=== PATIENT | female | born 1935 | race Asian ===

== ENCOUNTER 2019-07-12 14:00 | Inpatient (IN) | payer MEDICARE ==
[~2019-07-12] VITALS: Ht 147.3 cm; Wt 40.9 kg
[2019-07-12] MEDS ORDERED: UNK HTN MED PO (14:23)
[2019-07-12] MEDS ORDERED: MethylPREDNISolone SOD SUCC 125 MG/2 ML VIAL IVP ONE (14:30)
[2019-07-12] MEDS ORDERED: ALBUTEROL SULFATE 5 MG/ML 20 ML NEB SOLN [BULK] NEB ONE (14:30)
[2019-07-12] MEDS ORDERED: IPRATROPIUM BROMIDE 0.5 MG/2.5 ML NEB SOLUTION NEB ONE (14:30)
[2019-07-12 14:53] LABS: LYMPHOCYTES # (AUTO) 1.4 K/uL (1.0-4.8); MONOCYTES # (AUTO) 0.3 K/uL (0.1-1.0); RED BLOOD CELL COUNT(AUTO) 4.19 MIL/uL (4.00-5.20)
[2019-07-12 15:02] LABS: CREATININE 0.93 mg/dL (0.60-1.30); POTASSIUM 3.1 mmol/L (3.5-5.1)
[2019-07-12 15:08] LABS: ALBUMIN 3.4 g/dL (3.4-5.0); BILIRUBIN,TOTAL 0.7 mg/dL (0.1-1.0); TOTAL PROTEIN, SERUM 7.8 g/dL (6.4-8.2)
[2019-07-12 15:24] LABS: BASOPHILS % (AUTO) 1.3 % (0.0-2.0); EOSINOPHILS % (AUTO) 4.1 % (1.0-6.0); HEMATOCRIT 38.4 % (36-46); HEMOGLOBIN 13.2 g/dL (12.0-16.0); LYMPHOCYTES % (AUTO) 28.1 % (22.0-44.0); MEAN CORPUSCULAR HEMOGLOBIN 31.5 pg (26.0-34.0); MEAN CORPUSCULAR HGB CONC 34.3 G/dL (31.0-37.0); MEAN CORPUSCULAR VOLUME 92 fL (80-100); MONOCYTES % (AUTO) 6.4 % (2.0-9.0); NEUTROPHILS # (AUTO) 3.1 K/uL (1.8-7.7); NEUTROPHILS % (AUTO) 60.1 % (40.0-70.0); RED CELL DISTRIBUTION WIDTH 17.6 % (11.5-14.5)
[2019-07-12] MEDS ORDERED: FUROSEMIDE 40 MG/4 ML VIAL IVP ONE (15:30)
[2019-07-12 15:40] LABS: PLATELET COUNT (AUTO) 92 K/uL (150-450)
[2019-07-12] MEDS ORDERED: POTASSIUM CHL 10 MEQ/WATER 50 ML IV PRN (15:45)
[2019-07-12] MEDS: MethylPREDNISolone SOD SUCC 125 MG/2 ML VIAL IVP SCH ×2 (17:12→23:11)
[2019-07-12 18:11] VITALS: BP 134/61
[2019-07-12] MEDS: POTASSIUM CHLORIDE 20 MEQ ER TABLET PO PRN ×2 (18:11→23:11)
[2019-07-12] MEDS ORDERED: INFLUENZA VIRUS VACCINE QVS 2019-20 (3YR+)/PF 60 MCG/0.5 ML SYRINGE IM ONE (18:30)
[2019-07-12 20:00] VITALS: BP 132/68
[2019-07-12] MEDS: HEPARIN SODIUM,PORCINE 5,000 UNITS/ML VIAL SQ SCH (21:15)
[2019-07-12] MEDS: DOCUSATE SODIUM 100 MG CAPSULE PO SCH (21:15)
[2019-07-12 23:14] VITALS: BP 135/62
[2019-07-13] MEDS: MethylPREDNISolone SOD SUCC 125 MG/2 ML VIAL IVP SCH ×4 (05:06→23:49)
[2019-07-13 05:13] VITALS: BP 147/78
[2019-07-13 08:06] VITALS: BP 140/82
[2019-07-13] MEDS: FAMOTIDINE 20 MG TABLET PO SCH (08:12)
[2019-07-13] MEDS: MULTIVITAMINS WITH MINERALS, THERAPEUTIC TABLET PO SCH (08:12)
[2019-07-13] MEDS: DOCUSATE SODIUM 100 MG CAPSULE PO SCH ×2 (08:12→20:33)
[2019-07-13] MEDS: HEPARIN SODIUM,PORCINE 5,000 UNITS/ML VIAL SQ SCH ×2 (08:13→20:31)
[2019-07-13] MEDS: MONTELUKAST SODIUM 10 MG TABLET PO SCH (11:26)
[2019-07-13 12:07] VITALS: BP 157/78
[2019-07-13] MEDS: IPRATROPIUM BROMIDE 0.5 MG/2.5 ML NEB SOLUTION NEB PRN (12:12)
[2019-07-13] MEDS: ALBUTEROL SULFATE 2.5 MG/0.5 ML NEB SOLUTION NEB PRN (12:12)
[2019-07-13 16:02] VITALS: BP 144/76
[2019-07-13 19:42] VITALS: BP 131/64
[2019-07-13 23:35] VITALS: BP 145/82
[2019-07-14 04:45] VITALS: BP 150/83
[2019-07-14] MEDS: MethylPREDNISolone SOD SUCC 125 MG/2 ML VIAL IVP SCH (05:13)
[2019-07-14 07:20] VITALS: BP 145/85
[2019-07-14 07:56] LABS: MAGNESIUM 2.3 mg/dL (1.80-2.40); PHOSPHORUS 4.5 mg/dL (2.5-4.9)
[2019-07-14] MEDS: MONTELUKAST SODIUM 10 MG TABLET PO SCH (09:09)
[2019-07-14] MEDS: MULTIVITAMINS WITH MINERALS, THERAPEUTIC TABLET PO SCH (09:09)
[2019-07-14] MEDS: FAMOTIDINE 20 MG TABLET PO SCH (09:09)
[2019-07-14] MEDS: DOCUSATE SODIUM 100 MG CAPSULE PO SCH ×2 (09:09→21:10)
[2019-07-14] MEDS: HEPARIN SODIUM,PORCINE 5,000 UNITS/ML VIAL SQ SCH ×2 (09:10→21:11)
[2019-07-14] MEDS: ACETAMINOPHEN 325 MG TABLET PO PRN (09:19)
[2019-07-14 11:56] VITALS: BP 15/83
[2019-07-14] MEDS: PredniSONE 20 MG TABLET PO SCH (12:34)
[2019-07-14 15:28] VITALS: BP 153/90
[2019-07-14 20:18] VITALS: BP 141/78
[2019-07-15 00:18] VITALS: BP 151/74
[2019-07-15] MEDS: IPRATROPIUM BROMIDE 0.5 MG/2.5 ML NEB SOLUTION NEB PRN ×2 (00:35→04:46)
[2019-07-15] MEDS: ALBUTEROL SULFATE 2.5 MG/0.5 ML NEB SOLUTION NEB PRN ×2 (00:35→04:46)
[2019-07-15 05:16] VITALS: BP 153/75
[2019-07-15 08:02] VITALS: BP 148/80
[2019-07-15] MEDS: MULTIVITAMINS WITH MINERALS, THERAPEUTIC TABLET PO SCH (08:18)
[2019-07-15] MEDS: HEPARIN SODIUM,PORCINE 5,000 UNITS/ML VIAL SQ SCH (08:18)
[2019-07-15] MEDS: MONTELUKAST SODIUM 10 MG TABLET PO SCH (08:18)
[2019-07-15] MEDS: DOCUSATE SODIUM 100 MG CAPSULE PO SCH (08:18)
[2019-07-15] MEDS: FAMOTIDINE 20 MG TABLET PO SCH (08:19)
[2019-07-15] MEDS: PredniSONE 20 MG TABLET PO SCH (08:19)
[2019-07-15] MEDS ORDERED: COMBIVENT IH (12:05)
[2019-07-15] MEDS ORDERED: PRILOSEC PO (12:05)
[2019-07-15] MEDS ORDERED: SINGULAR PO (12:05)
[2019-07-15] MEDS ORDERED: ADVAIR IH (12:05)
[2019-07-15] MEDS ORDERED: PREDNISONE PO (12:05)
[2019-07-15] MEDS ORDERED: PRENISONE PO (12:05)
[2019-07-15 12:40] VITALS: BP 163/94
[2019-07-15] MEDS: ACETAMINOPHEN 325 MG TABLET PO PRN (13:28)
[2019-07-15 15:25] VITALS: BP 136/86
[2019-07-15 17:15] VITALS: BP 153/85
== END 2019-07-15 17:25 | DRG 189 ==
LOC: EMS 14:04 → EDSEX 14:04 → 6N 16:28 → 4E 18:48
PROVIDERS: ADMIT Internal Medicine; ATTEND Internal Medicine
PROC: 3E0234Z Introduction of Serum, Toxoid and Vaccine into Muscle, Percutaneous Approach (ICD-10-PCS; principal; 2019-07-15)
DX: J96.01 Acute respiratory failure with hypoxia (principal); E43 Unspecified severe protein-calorie malnutrition; J44.1 Chronic obstructive pulmonary disease with (acute) exacerbation; Z68.1 Body mass index [BMI] 19.9 or less, adult; F17.200 Nicotine dependence, unspecified, uncomplicated; E87.6 Hypokalemia; I10 Essential (primary) hypertension; Z90.49 Acquired absence of other specified parts of digestive tract; Z23 Encounter for immunization
CPT/HCPCS: 83735; 84100; 84132; 90686; 93005; 94640; 94644; 97116; 97162; 97165; 97530; 97535; G0378; J1644; J1940; J2930